=== PATIENT | male | born 1975 | race Caucasian/White ===

== ENCOUNTER 2018-02-14 15:37 | Emergency (ER) | payer OTHER ==
[~2018-02-14] VITALS: Ht 190.5 cm; Wt 81.6 kg
[~2018-02-14 15:37] MED LIST: ALBUTEROL SULF8.5 GM INH; BACTRIM DS TAB1 EACH PO; CEPHALEXIN500 MG PO; DAY TIME COLD-296 ML PO; FLONASE2 SPRAY NS; HYDROCODONE-CH473 ML PO; IBUPROFEN800 MG PO; KEFLEX500 MG PO; MUCINEX600 MG PO; NORCO 5-325 TA1 EACH PO; PREDNISONE20 MG PO; SUDAFED 12-HOU120 MG PO
[2018-02-14] MEDS ORDERED: NORCO 5-325 TA1 EACH PO (17:35)
[2018-02-14] MEDS ORDERED: DOXYCYCLINE HY100 MG PO (17:35)
== END 2018-02-14 17:56 | disposition home or self-care (01) ==
LOC: ED 15:37
PROC: 0HQFXZZ Repair Right Hand Skin, External Approach (ICD-10-PCS; principal; 2018-02-14)
DX: S62.630A Displaced fracture of distal phalanx of right index finger, initial encounter for closed fracture (principal); S66.320A Laceration of extensor muscle, fascia and tendon of right index finger at wrist and hand level, initial encounter; F17.200 Nicotine dependence, unspecified, uncomplicated; Z88.0 Allergy status to penicillin; Z23 Encounter for immunization; W20.8XXA Other cause of strike by thrown, projected or falling object, initial encounter
CPT/HCPCS: 12001; 73130; 90471; 90715; 99283

== ENCOUNTER 2019-08-25 09:15 | Emergency (ER) | payer OTHER ==
[~2019-08-25] VITALS: Ht 190.5 cm; Wt 81.7 kg
[~2019-08-25 09:15] MED LIST changes: +DOXYCYCLINE HY100 MG PO
[2019-08-25] MEDS ORDERED: DICYCLOMINE HCL20 MG PO (10:46)
[2019-08-25] MEDS ORDERED: OMEPRAZOLE20 MG PO (10:46)
== END 2019-08-25 11:25 | disposition home or self-care (01) ==
LOC: ED 09:15
DX: R10.12 Left upper quadrant pain (principal); I10 Essential (primary) hypertension; Z87.891 Personal history of nicotine dependence; Z88.0 Allergy status to penicillin; Z79.899 Other long term (current) drug therapy
CPT/HCPCS: 71046; 80053; 81001; 83690; 85025; 99284-25

== ENCOUNTER 2024-12-11 21:15 | Emergency (ER) | payer SELFPAY ==
[~2024-12-11] VITALS: Wt 96.0 kg
[~2024-12-11 21:15] MED LIST changes: +DICYCLOMINE HCL20 MG PO; +OMEPRAZOLE20 MG PO
[2024-12-11 21:32] LABS: BASOPHILS 1.4 % (0.2-1.2); EOSINOPHILS 4.6 % (0.8-7.0); LYMPHOCYTES 37.7 % (21.8-53.1); MCH 30.6 PG (25.7-32.2); MCHC 35.1 g/dL (32.3-36.5); MCV 87.1 fL (79.0-92.2); MONOCYTES 9.5 % (5.3-12.2); NEUTROPHILS 46.4 % (34.0-67.9); RBC 5.04 M/uL (4.63-6.08)
[2024-12-11 21:47] LABS: INR 0.98 (0.80-1.30); PROTIME 12.6 Sec (11.2-14.2)
[2024-12-11 21:55] LABS: ALT (SGPT) 35.0 U/L (14-59); AST (SGOT) 18.0 U/L (15-37); GLOMERULAR FILTRATION RATE,EST 104.0 mL/min (>60); PROTEIN, TOTAL 7.6 g/dL (6.4-8.2); UREA NITROGEN 15.0 mg/dL (7-18)
[2024-12-11] MEDS ORDERED: CYCLOBENZAPRINE10 MG PO (23:10)
[2024-12-11] MEDS ORDERED: CYCLOBENZAPRINE HCL 10 MG HOME.PACK PO ONE (23:15)
[2024-12-11 23:22] VITALS: BP 147/108
--- NOTE | 2024-12-12 12:59 | EKG ---
[facility] [address] [place], [place] [address] Signed Normal sinus rhythm Normal ECG No previous ECGs available Confirmed by Azar Chen DO ([id number]) on 12/12/2024 12:59:11 PM Electronically Signed By: AZAR CHEN DO 12/12/24 1259 PATIENT NAME: ERIN RUIZN Electrocardiogram DATE OF : 73 PHYSICIAN: AZAR CHEN DO REPORT #: [id number] REPORT IS CONFIDENTIAL AND NOT TO BE RELEASED WITHOUT AUTHORIZATION
== END 2024-12-11 23:32 | disposition home or self-care (01) ==
LOC: ED 21:15
PROVIDERS: Family Medicine
DX: R07.89 Other chest pain (principal); Z87.891 Personal history of nicotine dependence; Z88.0 Allergy status to penicillin
CPT/HCPCS: 36415; 71045; 80053; 83880; 84484; 85025; 85379; 85610; 93005; 93010; 99285-25